=== PATIENT | male | born 1975 | race Caucasian/White ===

== ENCOUNTER 2020-04-08 10:00 | Observation (INO) | payer BC ==
[2020-04-08] MEDS ORDERED: NITROGLYCERIN SL TABS 0.4 MG TAB SUBLINGUAL STA (10:19)
[2020-04-08] MEDS ORDERED: ASPIRIN 81 MG PO STA (10:19)
[2020-04-08 10:36] LABS: Basophils % (A) 1 %; Eosinophils # (A) 0.2 k/uL (0-0.7); Eosinophils % (A) 3 %; HCT 42.4 % (39.0-53.0); HGB 14.7 gm/dL (13.0-17.5); Lymphocytes # (A) 1.2 k/uL (1.0-4.8); Lymphocytes % (A) 21 %; MCH 30.2 pg (25.0-35.0); MCHC 34.6 g/dL (31.0-37.0); Mean Platelet Volume 6.5; Monocytes # (A) 0.4 k/uL (0-1.0); Monocytes % (A) 6 %; Neutrophils # (A) 3.9 k/uL (1.3-7.7); Neutrophils % (A) 68 %; Platelet Count 206 k/uL (150-450); RBC 4.88 m/uL (4.30-5.90); WBC 5.8 k/uL (3.8-10.6)
--- NOTE | 2020-04-08 10:36 | ED ---
Chest Pain HPI - General Chief Complaint: Chest Pain Stated Complaint: Chest/Arm Pain Time Seen by Provider: 04/08/20 10:08 Source: patient, RN notes reviewed Mode of arrival: ambulatory Limitations: no limitations - History of Present Illness Initial Comments: This a 44-year-old male presents emergency Department chief complaint left-sided chest and left arm pain. Patient states that this started Thursday and Thursday states he had an event where he felt severe fluttering of his heart. Patient states after that he started developing some left-sided chest pain which is now radiating to his left arm states his arm just feels heavy. Denies any associated headache dizziness blurred vision or any leg symptoms. Patient does not have a history of cardiac disease so he reports his mother had since her cardiac arrhythmia, patient has a history of smoking. Patient denies fevers chills abdominal pain. - Related Data Allergies Allergy/AdvReac Type Severity Reaction Status Date / Time Penicillins Allergy Unknown Verified 04/08/20 10:06 Review of Systems ROS Statement: Those systems with pertinent positive or pertinent negative responses have been documented in the HPI. ROS Other: All systems not noted in ROS Statement are negative. EKG Findings - EKG Comments: EKG Findings:: EKG performed at 10:19 normal sinus rhythm incomplete right bundle with inverted T-wave in lead 3, rate of 61. 112 QRS 108 QT/QTC 392/394 Past Medical History Past Medical History: Asthma History of Any Multi-Drug Resistant Organisms: None Reported Past Surgical History: Orthopedic Surgery Additional Past Surgical History / Comment(s): Skin graft left foot. Past Psychological History: No Psychological Hx Reported Smoking Status: Never smoker Past Alcohol Use History: Occasional Past Drug Use History: None Reported General Exam Limitations: no limitations General appearance: alert, in no apparent distress Head exam: Present: atraumatic, normocephalic, normal inspection Eye exam: Present: normal appearance, PERRL, EOMI. Absent: scleral icterus, conjunctival injection, periorbital swelling ENT exam: Present: normal exam, normal oropharynx, mucous membranes moist Neck exam: Present: normal inspection, full ROM. Absent: tenderness, meningismus, lymphadenopathy Respiratory exam: Present: normal lung sounds bilaterally. Absent: respiratory distress, wheezes, rales, rhonchi, stridor Cardiovascular Exam: Present: regular rate, normal rhythm, normal heart sounds. Absent: systolic murmur, diastolic murmur, rubs, gallop, clicks GI/Abdominal exam: Present: soft, normal bowel sounds. 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 Absent: motor sensory deficit Skin exam: Present: warm, dry, intact, normal color. Absent: rash Course Vital Signs 04/08/20 10:03 Temperature 98.8 F Pulse Rate 74 Respiratory 20 Rate Blood Pressure 150/89 O2 Sat by Pulse 99 Oximetry Chest Pain MDM - MDM 44-year-old presented for chest pain. Patient does have some mild EKG changes troponin is negative this time. Patient be admitted for cardiac rule out. Patient will have an echocardiogram cardiology evaluation. Disposition Clinical Impression: Chest pain Disposition: ADMITTED IP TO THIS HOSP Condition: Fair Referrals: Nonstaff,Physician [Primary Care Provider] - 1-2 days
[2020-04-08 10:52] LABS: ALT 25 U/L (4-49); AST 29 U/L (17-59); African American GFR (CKD) >90 (>60 ml/min/1.73 sqM); Albumin 4.2 g/dL (3.5-5.0); Alkaline Phosphatase 76 U/L (38-126); Anion Gap 8 mmol/L; Blood Urea Nitrogen 20 mg/dL (9-20); Calcium 9.3 mg/dL (8.4-10.2); Carbon Dioxide 24 mmol/L (22-30); Chloride 104 mmol/L (98-107); Glucose 105 mg/dL (74-99); Lipase 34 U/L (23-300); Magnesium 1.9 mg/dL (1.6-2.3); Non-African American GFR(CKD) >90 (>60 ml/min/1.73 sqM); Potassium 4.5 mmol/L (3.5-5.1); Sodium 136 mmol/L (137-145); Total Bilirubin 0.6 mg/dL (0.2-1.3); Total Protein 6.6 g/dL (6.3-8.2)
--- NOTE | 2020-04-08 10:53 | XR ---
EXAMINATION TYPE: XR chest 2V DATE OF EXAM: 04/08/2020 COMPARISON: NONE HISTORY: Chest pain. TECHNIQUE: Frontal and lateral views of the chest are obtained. FINDINGS: Overlying EKG leads. There is no focal air space opacity, pleural effusion, or pneumothora x seen. The cardiac silhouette size is within normal limits. The osseous structures are intact. IMPRESSION: No acute cardiopulmonary process.
[2020-04-08 10:57] LABS: D-Dimer <0.17 mg/L FEU (<0.60); INR 0.9 (<1.2); Partial Thromboplastin Time 24.3 sec (22.0-30.0); Prothrombin Time 10.1 sec (9.0-12.0)
[2020-04-08] MEDS ORDERED: HEPARIN SODIUM,PORCINE 5,000 UNIT/ML 1 ML VIAL IV ONE (11:22)
[2020-04-08] MEDS ORDERED: HEPARIN SODIUM,PORCINE 5,000 UNIT/ML 1 ML VIAL IV PRN (11:22)
[2020-04-08] MEDS ORDERED: NITROGLYCERIN SL TABS 0.4 MG TAB SUBLINGUAL PRN (11:22)
[2020-04-08] MEDS ORDERED: HEPARIN SOD,PORK IN 0.45% NACL 25,000 UNIT in 0.45% NACL 1 250ML.BAG IV SCH (11:30)
[2020-04-08] MEDS ORDERED: NALOXONE 0.4 MG/ML 1 ML VIAL IV PRN (14:25)
--- NOTE | 2020-04-08 14:36 | P.HPIM ---
History of Present Illness H&P Date: 04/08/20 Chief Complaint: chest pain 44-year-old male presents emergency Department chief complaint left-sided chest and left arm pain. When this started his left arm felt very heavy. Patient states that this started Thursday, he also had associated palpitation. Pain and discomfort are more when he moves around or changes position. He could not Get comfortable last night while laying in bed. He never had this type of chest pain in the past. He has chronic shortness of breath which she attributes to his asthma and having to work with dust over the past several years. No history of cardiac disease. Family hx significant for cardiac arrhythmia in his mother. Patient denies fevers chills abdominal pain. Denies any associated headache dizziness blurred vision or any leg symptoms. Evaluation in the emergency department revealed normal EKG without acute changes. His laboratory tests were all unremarkable. Troponin negative. Review of Systems Complete review of system performed, pertinent positives per HPI, otherwise negative Past Medical History Past Medical History: Asthma History of Any Multi-Drug Resistant Organisms: None Reported Past Surgical History: Orthopedic Surgery Additional Past Surgical History / Comment(s): Skin graft left foot. Past Psychological History: No Psychological Hx Reported Smoking Status: Never smoker Past Alcohol Use History: Occasional Past Drug Use History: None Reported Medications and Allergies Home Medications Medication Instructions Recorded Confirmed Type Albuterol Sulfate [Albuterol 2 puff PO RT-Q6H PRN 04/08/20 04/08/20 History Sulfate Hfa] Buprenorphine HCl/Naloxone HCl 1 film SL DAILY 04/08/20 04/08/20 History [Suboxone 8 mg-2 mg Sl Film] Montelukast [Singulair] 10 mg PO DAILY 04/08/20 04/08/20 History Allergies Allergy/AdvReac Type Severity Reaction Status Date / Time Penicillins Allergy Unknown Verified 04/08/20 11:36 Physical Exam Vitals: Vital Signs Temp Pulse Pulse Resp BP BP Pulse Ox 04/08/20 12:40 97.9 F 51 L 18 152/89 99 04/08/20 11:47 52 L 17 123/78 98 04/08/20 10:03 98.8 F 74 20 150/89 99 Intake and Output 04/07/20 04/08/20 04/08/20 22:59 06:59 14:59 Other: Weight 90.718 kg Constitutional: No acute distress, conversant, pleasant Eyes:Anicteric sclerae, moist conjunctiva, no lid-lag, PERRLA, ENMT: Oropharynx clear, no erythema, exudates Neck: Supple, FROM, no masses, or JVD, No carotid bruits, No thyromegaly Lungs: Clear to auscultation, Clear to percussion, Normal respiratory effort, no accessory muscle use Cardiovascular: Heart regular in rate and rhythm, No murmurs, gallops, or rubs, No peripheral edema Abdominal: Soft, Nontender, no guarding, rebound or rigidity, Normoactive bowel sounds, No hepatomegaly, No splenomegaly, No palpable mass Skin: Normal temperature, tone, texture, turgor, no induration, No subcutaneous nodules, No rash, lesions, No ulcers Extremities: No digital cyanosis, No clubbing, Pedal pulses intact and symmetrical, Radial pulses intact and symmetrical, No calf tenderness Psychiatric: Alert and oriented to person, place and time, appropriate affect, intact judgement Neuro: Muscles Strength 5/5 in all 4 extremities, Sensation to light touch grossly present throughout, Cranial nerves II-XII grossly intact, no focal sensory deficits Results CBC & Chem 7: 04/08/20 10:26 04/08/20 10:26 Labs: Abnormal Lab Results - Last 24 Hours (Table) 04/08/20 Range/Units 10:26 Sodium 136 L (137-145) mmol/L Glucose 105 H (74-99) mg/dL Assessment and Plan Plan: Acute chest pain Admit to telemetry Consult cardiology Cycle troponins Stress test in a.m. Echo Moderate intermittent asthma Albuterol when necessary Need to avoid dust exposure and possibly start inhaled corticosteroids. Admitted to observation Anticipated discharge: Tomorrow Disposition: Likely home
[2020-04-09] MEDS ORDERED: ASPIRIN 325 MG TAB PO SCH (09:00)
[2020-04-09 09:23] LABS: Mean Platelet Volume 6.7; Platelet Count 204 k/uL (150-450)
--- NOTE | 2020-04-09 13:00 | ECHOF ---
Referral Reason:chest pain MEASUREMENTS -------- HEIGHT: 180.3 cm WEIGHT: 90.7 kg BP: RVIDd: 2.5 cm (< 3.3) IVSd: 1.1 cm (0.6 - 1.1) LVIDd: 4.6 cm (3.9 - 5.3) LVPWd: 1.1 cm (0.6 - 1.1) IVSs: 1.8 cm LVIDs: 3.0 cm LVPWs: 1.6 cm LAESV Index (A-L): 27.22 ml/m Ao Diam: 3.5 cm (2.0 - 3.7) AV Cusp: 2.6 cm (1.5 - 2.6) LA Diam: 3.7 cm (2.7 - 3.8) MV EXCURSION: 16.312 mm (> 18.000) MV EF SLOPE: 117 mm/s (70 - 150) EPSS: 0.7 cm MV E Chet: 1.01 m/s MV DecT: 178 ms MV A Chet: 0.78 m/s MV E/A Ratio: 1.30 RAP: 5.00 mmHg RVSP: 21.84 mmHg FINDINGS -------- This was a technically good study. The left ventricular size is normal. Left ventricular wall thickness is normal. Overall left vent ricular systolic function is normal with, an EF between 55 - 60 %. The diastolic filling pattern is normal for the age of the patient 8.74. The right ventricle is normal in size. The left atrial size is normal. Normal LA size by volume 22+/-6 ml/m2. The right atrial size is normal. The aortic valve is trileaflet and appears structurally normal. The mitral valve is normal. Aomt-gx-yhpdqjoc mitral regurgitation is present. The tricuspid valve appears structurally normal. Trace tricuspid regurgitation present. Right juan tricular systolic pressure is normal at < 35 mmHg. There is no pulmonic regurgitation present. The aortic root size is normal. Normal inferior vena cava with normal inspiratory collapse consistent with estimated right atrial pre ssure of 5 mmHg. There is no pericardial effusion. CONCLUSIONS -------- 1. The left ventricular size is normal. 2. Left ventricular wall thickness is normal. 3. Overall left ventricular systolic function is normal with, an EF between 55 - 60 %. 4. The diastolic filling pattern is normal for the age of the patient 8.74 5. Egtn-bj-knnfdxxs mitral regurgitation is present. 6. Trace tricuspid regurgitation present. 7. There is no pericardial effusion. MAIL ORDER BILLER: Radha Tavera RDCS
--- NOTE | 2020-04-09 14:00 | P.CRDCN ---
History of Present Illness Consult date: 04/09/20 History of present illness: CHIEF COMPLAINT: Chest pain HISTORY OF PRESENT ILLNESS: This is a 44-year-old male with a past medical history significant for asthma and elevated triglycerides. 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 We have been asked to see the patient in consultation for chest pain. Patient examined this point the bedside. Patient states Thursday he was at his house with his children hanging on the living room when he suddenly felt a "jolt" in his chest. He states it felt as though his heart was thumping on of his chest. He reports he then felt weak and felt like he was going to pass out. Patient states he did not come to the hospital until the weekend because he had work responsibilities to handle first. Patient states he has not had any chest pain since that time. DIAGNOSTICS: EKG reveals sinus mechanism with no signs of acute ischemia Chest xray negative for acute process Laboratory data: WBC 5.8. Hemoglobin 14.7. Platelet count 206. D-dimer 0.17. Sodium 136. Potassium 4.5. BUN 20. Creatinine 0.95. Troponin negative 3. Current home cardiac medications include none REVIEW OF SYSTEMS: At the time of my exam: CONSTITUTIONAL: Denies fever or chills. HEENT: Denies blurred vision, vision changes, or eye pain. Denies hemoptysis CARDIOVASCULAR: Denies chest pain, orthopnea, PND or palpitations RESPIRATORY: No shortness of breath. GASTROINTESTINAL: Denies abdominal pain. Denies nausea or vomiting. HEMATOLOGIC: Denies bleeding disorders. GENITOURINARY: Denies any blood in urine. SKIN: Denies pruitis. Denies rash. PHYSICAL EXAM: VITAL SIGNS: Reviewed. GENERAL: Well-developed in no acute distress. HEENT: Head is normocephalic. Pupils are equal, round. Sclerae anicteric. Mucous membranes of the mouth are moist. Neck supple. No JVD or thyromegaly LUNGS: Respirations even and unlabored. Lungs essentially clear to auscultation bilaterally. HEART: Regular rate and rhythm. S1 and S2 heard. ABDOMEN: Soft. Nondistended. Nontender. EXTREMITIES: Normal range of motion. No clubbing or cyanosis. Peripheral pulses intact. No lower extremity edema NEUROLOGIC: Awake and alert. Oriented x 3. ASSESSMENT: Chest pain, atypical, troponin negative 3 History of asthma History of hypertriglyceridemia PLAN: An acute coronary event has been ruled out Obtain 2-D echo to assess cardiac structure and function Patient to undergo stress echo today Further recommendations pending patient's course Nurse practitioner note has been reviewed by physician. Signing provider agrees with the documented findings, assessment, and plan of care. Past Medical History Past Medical History: Asthma History of Any Multi-Drug Resistant Organisms: None Reported Past Surgical History: Orthopedic Surgery Additional Past Surgical History / Comment(s): Skin graft left foot. Past Psychological History: No Psychological Hx Reported Smoking Status: Never smoker Past Alcohol Use History: Occasional Past Drug Use History: None Reported Medications and Allergies Home Medications Medication Instructions Recorded Confirmed Type Albuterol Sulfate [Albuterol 2 puff PO RT-Q6H PRN 04/08/20 04/08/20 History Sulfate Hfa] Buprenorphine HCl/Naloxone HCl 1 film SL DAILY 04/08/20 04/08/20 History [Suboxone 8 mg-2 mg Sl Film] Montelukast [Singulair] 10 mg PO DAILY 04/08/20 04/08/20 History Allergies Allergy/AdvReac Type Severity Reaction Status Date / Time Penicillins Allergy Unknown Verified 04/08/20 11:36 Physical Exam Vitals: Vital Signs Temp Pulse Pulse Resp BP BP Pulse Ox 04/09/20 10:43 98 04/09/20 08:00 16 04/09/20 07:00 97.8 F 56 L 16 119/74 98 04/09/20 01:35 97.9 F 64 16 114/66 96 04/08/20 20:31 97.9 F 68 18 131/80 96 04/08/20 14:28 98.0 F 55 L 18 123/74 98 04/08/20 14:00 16 04/08/20 12:40 97.9 F 51 L 18 152/89 99 Intake and Output 04/08/20 04/09/20 04/09/20 22:59 06:59 14:59 Intake Total 547.147 Balance 547.147 Intake: Intake, IV Titration 67.147 Amount Heparin Sod,Pork in 0.45% 67.147 NaCl 25,000 unit In 0.45 % NaCl 1 250ml.bag @ 11. 02 UNITS/KG/HR 9.997 mls/ hr IV .Q24H GLO Rx#: [id number] Oral 480 Other: # Voids 2 2 Results 04/09/20 09:02 04/08/20 10:26 Cardiac Enzymes 04/08/20 04/08/20 Range/Units 13:45 17:34 Troponin I <0.012 <0.012 (0.000-0.034) ng/mL Coagulation 04/08/20 04/09/20 04/09/20 Range/Units 17:34 01:19 09:02 APTT 43.7 H 47.3 H 35.6 H (22.0-30.0) sec CBC 04/09/20 Range/Units 09:02 Plt Count 204 (150-450) k/uL Current Medications Generic Name Dose Route Start Last Admin Trade Name Freq PRN Reason Stop Dose Admin Heparin Sodium (Porcine) 0 unit 04/08/20 11:22 Heparin Sodium,Porcine 5,000 Unit/Ml 1 Ml Vial IV Q6HR PRN Low PTT Protocol Naloxone HCl 0.2 mg 04/08/20 14:25 Naloxone 0.4 Mg/Ml 1 Ml Vial IV Q2M PRN Opioid Reversal Nitroglycerin 0.4 mg 04/08/20 11:22 Nitroglycerin Sl Tabs 0.4 Mg Tab SUBLINGUAL Q5M PRN Chest Pain Intake and Output 04/08/20 04/09/20 04/09/20 22:59 06:59 14:59 Intake Total 547.147 Balance 547.147 Intake: Intake, IV Titration 67.147 Amount Heparin Sod,Pork in 0.45% 67.147 NaCl 25,000 unit In 0.45 % NaCl 1 250ml.bag @ 11. 02 UNITS/KG/HR 9.997 mls/ hr IV .Q24H GLO Rx#: [id number] Oral 480 Other: # Voids 2 2 04/09/20 09:02 04/08/20 10:26
--- NOTE | 2020-04-09 14:42 | P.DS ---
Providers Date of admission: 04/08/20 11:48 Expected date of discharge: 04/09/20 Attending physician: Jewell Box MD Consults: 04/08/20 11:22 Consult Physician Urgent Consulting Provider: Lauren Diamond Consult Reason/Comments: chest pain Do you want consulting provider notified?: Yes Primary care physician: Physician Nonstaff Hospital Course: 44-year-old male presents emergency Department chief complaint left-sided chest and left arm pain. When this started his left arm felt very heavy. Patient states that this started Thursday, he also had associated palpitation. Pain and discomfort are more when he moves around or changes position. He could not Get comfortable last night while laying in bed. He never had this type of chest pain in the past. He has chronic shortness of breath which she attributes to his asthma and having to work with dust over the past several years. No history of cardiac disease. Family hx significant for cardiac arrhythmia in his mother. Patient denies fevers chills abdominal pain. Denies any associated headache dizziness blurred vision or any leg symptoms. Evaluation in the emergency department revealed normal EKG without acute changes. His laboratory tests were all unremarkable. Troponin negative. upon admission patient was monitored on telemetry. That did not show any acute changes. This morning he underwent stress EKG and echocardiogram and both were negative for ischemic changes or wall motion abnormalities, respectively. Patient is currently feeling okay. No further episodes of chest pain. He was told that his symptoms were most likely secondary to pleuritic chest pain due to having asthma exacerbated by dust inhalation at work on a regular basis. He was advised to change the work environment. He will be continued on his home meds for now, will add inhaled steroid. He will be discharged home in a stable condition. Patient Condition at Discharge: Fair Plan - Discharge Summary New Discharge Prescriptions: Continue Montelukast [Singulair] 10 mg PO DAILY Buprenorphine HCl/Naloxone HCl [Suboxone 8 mg-2 mg Sl Film] 1 film SL DAILY Albuterol Sulfate [Albuterol Sulfate Hfa] 2 puff PO RT-Q6H PRN PRN Reason: Shortness Of Breath Discharge Medication List Albuterol Sulfate [Albuterol Sulfate Hfa] 2 puff PO RT-Q6H PRN 04/08/20 [History] Buprenorphine HCl/Naloxone HCl [Suboxone 8 mg-2 mg Sl Film] 1 film SL DAILY 04/08/20 [History] Montelukast [Singulair] 10 mg PO DAILY 04/08/20 [History] Follow up Appointment(s)/Referral(s): Nonstaff,Physician [Primary Care Provider] - 1-2 days
[2020-04-09 15:16] VITALS: BP 137/76; PULSE 76; RESP 20; TEMP 97.5
[2020-04-09 16:11] LABS: Chol/HDL Ratio 4.56
--- NOTE | 2020-04-09 16:38 | ECHOS ---
STRESS ECHOCARDIOGRAM LUMASON: N/A Vial INDICATIONS: Chest pain. MEDICATIONS: BASELINE HEART RATE: 54 BASELINE BLOOD PRESSURE: 138/85 MAXIMUM HEART RATE: 157 MAXIMUM BLOOD PRESSURE: 177/73 85% MPHR: 150 100% MPHR: 175 METS: 12.1 MAXIMUM STAGE REACHED: 4 TOTAL EXERCISE TIME: 10 minutes CLINICAL INFORMATION: STRESS DATA: Heart rate 54, pressure is 138/85 mmHg. Baseline EKG showed sinus mechanism. The patient exercised on the treadmill according to Luis protocol for a total of 10 minutes and achieved 12.1 METs. Max heart rate was 157, which is about 89% of maximum predicted heart rate and maximum blood pressure was 177/73 mmHg. Clinically, the patient did not have any symptoms. The EKG did not show any significant ST or T- wave abnormalities concerning for ischemia. ECHOCARDIOGRAM IMAGES: On echocardiogram images from parasternal long axis view, parasternal short axis view, the apical 4 chamber and apical 2 chamber were obtained as the baseline images, at the peak of the heart rate as well as on recovery and the echocardiogram images did not show any obvious wall motion abnormalities concerning for ischemia. CONCLUSION: 1. Excellent exercise tolerance. 2. Normal EKG in response to exercise. 3. Normal echocardiogram in response to exercise. MMODL / IJN: [id number] /
== END 2020-04-09 15:15 ==
LOC: EC 10:00 → 6NMEDSUR 11:48
PROVIDERS: ADMIT Internal Medicine; ATTEND Internal Medicine
DX: R07.89 Other chest pain (principal); R00.2 Palpitations; J45.20 Mild intermittent asthma, uncomplicated; E78.1 Pure hyperglyceridemia; Z79.899 Other long term (current) drug therapy; Z88.0 Allergy status to penicillin; Z98.890 Other specified postprocedural states; Z57.2 Occupational exposure to dust; Z20.828 Contact with and (suspected) exposure to other viral communicable diseases; Z82.49 Family history of ischemic heart disease and other diseases of the circulatory system
CPT/HCPCS: 96366 ×2; 93005 ×2; 96376; 96365; 99285; 36415; 94760; 93306; 93351; 85379; 83880; 80061; 80053; 83690; 83735; 84484; 85025; 85049; 85610; 85730 ×2; 87635; 71046; G0378 ×2; J1644 ×2